=== PATIENT | female | born 1995 | race Caucasian/White ===

== ENCOUNTER 2022-04-12 21:34 | Emergency (ER) | payer OTHER ==
[~2022-04-12] VITALS: Ht 4206 cm
[~2022-04-12 21:34] MED LIST: DEPO PROVER150 MG/M1 IM
[2022-04-12 22:08] LABS: BASO # 0.1 10*3/uL (0.0-0.1); BASO % 0.4 % (0.0-1.0); EOS % 0.1 % (1.0-4.0); HEMATOCRIT 42.9 % (37.0-47.0); LYMPH # 1.2 10*3/uL (1.3-4.4); LYMPH % 7.2 % (27.0-41.0); MEAN CELL VOLUME 92.7 fl (81.0-99.0); MEAN CORPUSCULAR HGB 30.2 pg (27.0-31.0); MEAN CORPUSCULAR HGB CONC 32.6 g/dl (33.0-37.0); MEAN PLATELET VOLUME 9.9 fl (9.6-12.3); MONO # 1.4 10*3/uL (0.1-1.0); MONO % 8.2 % (3.0-9.0); NEUT # 14.1 10*3/uL (2.3-7.9); NEUT % 83.7 % (47.0-73.0); PLATELET COUNT AUTOMATED 358 10*3/uL (130-400); RED BLOOD COUNT 4.63 10*6/uL (4.10-5.10); RED CELL DISTRI WIDTH 13.1 % (0-14.5); WHITE BLOOD COUNT 16.8 10*3/uL (4.8-10.8)
[2022-04-12 22:22] LABS: ALKALINE PHOSPHATASE 86 U/L (46-116); BUN 9 mg/dl (9-23); CHLORIDE 105 mmol/L (98-107); TOTAL PROTEIN 7.2 gm/dL (6.0-8.0)
[2022-04-12] MEDS ORDERED: HYDROCODONE-AC1 EACH PO (22:24)
[2022-04-12 22:29] LABS: SGPT/ALT < 7 U/L (10-49)
== END 2022-04-12 22:52 | disposition home or self-care (01) ==
LOC: ED 21:34
PROVIDERS: Nurse Practitioner Family
DX: K08.89 Other specified disorders of teeth and supporting structures (principal)

== ENCOUNTER 2022-04-30 13:00 | Emergency (ER) | payer OTHER ==
[~2022-04-30] VITALS: Ht 162.5 cm; Wt 66.2 kg
[~2022-04-30 13:00] MED LIST changes: +HYDROCODONE-AC1 EACH PO
== END 2022-04-30 17:52 | disposition left against medical advice (07) ==
LOC: ED 13:00
DX: R10.2 Pelvic and perineal pain (principal)

== ENCOUNTER 2022-04-30 20:15 | Emergency (ER) | payer OTHER ==
[~2022-04-30] VITALS: Ht 162.5 cm; Wt 66.2 kg
== END 2022-04-30 20:38 | disposition left against medical advice (07) ==
LOC: ED 20:15
DX: N90.7 Vulvar cyst (principal)

== ENCOUNTER 2022-06-05 19:34 | Inpatient (IN) | payer OTHER ==
[~2022-06-05] VITALS: Ht 162.6 cm; Wt 66.4 kg
[2022-06-05 19:58] VITALS: BP 103/64
[2022-06-05 20:16] LABS: BASO % 0.2 % (0.0-1.0); EOS % 0.3 % (1.0-4.0); HEMATOCRIT 44.5 % (37.0-47.0); LYMPH # 0.6 10*3/uL (1.3-4.4); LYMPH % 4.3 % (27.0-41.0); MEAN CELL VOLUME 89.5 fl (81.0-99.0); MEAN CORPUSCULAR HGB 30.8 pg (27.0-31.0); MEAN CORPUSCULAR HGB CONC 34.4 g/dl (33.0-37.0); MEAN PLATELET VOLUME 9.7 fl (9.6-12.3); MONO % 7.5 % (3.0-9.0); NEUT # 11.3 10*3/uL (2.3-7.9); NEUT % 87.4 % (47.0-73.0); PLATELET COUNT AUTOMATED 352 10*3/uL (130-400); RED BLOOD COUNT 4.97 10*6/uL (4.10-5.10); RED CELL DISTRI WIDTH 12.6 % (0-14.5); WHITE BLOOD COUNT 12.9 10*3/uL (4.8-10.8)
[2022-06-05 20:26] LABS: BILIRUBIN Negative (Negative); BLOOD Negative (Negative); CLARITY Clear (Clear); COLOR Yellow (Yellow); GLUCOSE Negative (Negative); KETONE 3+ (Negative); LEUKO ESTERASE 1+ (Negative); NITRITE Negative (Negative); SPECIFIC GRAVITY 1.025 (1.001-1.030)
[2022-06-05 20:32] LABS: ALKALINE PHOSPHATASE 80 U/L (46-116); B-hCG (QUALITATIVE) NEGATIVE (NEGATIVE); BUN 12 mg/dl (9-23); CHLORIDE 105 mmol/L (98-107); LIPASE 33 U/L (12-53); POTASSIUM 3.5 mmol/L (3.4-5.1); SGPT/ALT 8 U/L (10-49); TOTAL PROTEIN 7.4 gm/dL (6.0-8.0)
[2022-06-05 20:37] LABS: BACTERIA 1+; MUCOUS 1+; RBC 0-2 rbc/hpf (0-2)
[2022-06-05] MEDS ORDERED: Ondansetron4 MG PO ×2 (22:10)
[2022-06-05] MEDS ORDERED: CEFDINIR300 MG PO ×2 (22:10)
[2022-06-06 00:35] VITALS: BP 111/68
[2022-06-06 06:50] VITALS: BP 93/56
[2022-06-06 08:11] LABS: INTERNATIONAL NORM RATIO 1.1 (2.0-3.5)
[2022-06-06 08:54] LABS: ALKALINE PHOSPHATASE 62 U/L (46-116); BUN 12 mg/dl (9-23); CHLORIDE 109 mmol/L (98-107); CHOLESTEROL 110 mg/dL (<200); LDL CHOLESTEROL 36 mg/dL (9-159); POTASSIUM 3.2 mmol/L (3.4-5.1); SGPT/ALT 7 U/L (10-49); THYROID STIM HORMONE (HS) 0.456 uIU/ml (0.550-4.780); TOTAL PROTEIN 5.8 gm/dL (6.0-8.0); TRIGLYCERIDES 70 mg/dl (<150)
[2022-06-06 09:16] LABS: BASO % 0.5 % (0.0-1.0); MEAN CORPUSCULAR HGB 30.4 pg (27.0-31.0); MONO # 0.5 10*3/uL (0.1-1.0)
[2022-06-06 09:26] LABS: VITAMIN D, 25-HYDROXY 23.9 ng/mL (30-100)
[2022-06-06 09:29] LABS: EOS % 0.5 % (1.0-4.0); HEMATOCRIT 36.5 % (37.0-47.0); LYMPH % 17.3 % (27.0-41.0); MEAN CELL VOLUME 92.4 fl (81.0-99.0); MEAN CORPUSCULAR HGB CONC 32.9 g/dl (33.0-37.0); MEAN PLATELET VOLUME 10.1 fl (9.6-12.3); MONO % 8.7 % (3.0-9.0); NEUT % 72.8 % (47.0-73.0); RED BLOOD COUNT 3.95 10*6/uL (4.10-5.10); RED CELL DISTRI WIDTH 12.7 % (0-14.5); WHITE BLOOD COUNT 5.5 10*3/uL (4.8-10.8)
[2022-06-06 09:42] LABS: PLATELET COUNT AUTOMATED 233 10*3/uL (130-400)
[2022-06-06 09:54] VITALS: BP 102/58
[2022-06-06 16:00] VITALS: BP 113/57
[2022-06-06] MEDS ORDERED: HYDROXYZINE PAM25 M1 PO (16:28)
[2022-06-06 20:00] VITALS: BP 100/59
[2022-06-07] VITALS: BP 102/64
[2022-06-07 06:12] LABS: BASO % 0.5 % (0.0-1.0); EOS # 0.2 10*3/uL (0.0-0.4); EOS % 5.2 % (1.0-4.0); HEMATOCRIT 36.7 % (37.0-47.0); LYMPH # 1.5 10*3/uL (1.3-4.4); LYMPH % 36.6 % (27.0-41.0); MEAN CELL VOLUME 92.9 fl (81.0-99.0); MEAN CORPUSCULAR HGB 30.1 pg (27.0-31.0); MEAN CORPUSCULAR HGB CONC 32.4 g/dl (33.0-37.0); MEAN PLATELET VOLUME 10.5 fl (9.6-12.3); MONO # 0.7 10*3/uL (0.1-1.0); MONO % 15.7 % (3.0-9.0); NEUT # 1.8 10*3/uL (2.3-7.9); NEUT % 41.8 % (47.0-73.0); PLATELET COUNT AUTOMATED 272 10*3/uL (130-400); RED BLOOD COUNT 3.95 10*6/uL (4.10-5.10); RED CELL DISTRI WIDTH 12.5 % (0-14.5); WHITE BLOOD COUNT 4.2 10*3/uL (4.8-10.8)
[2022-06-07 06:36] LABS: ALKALINE PHOSPHATASE 59 U/L (46-116); BUN 11 mg/dl (9-23); CHLORIDE 109 mmol/L (98-107); POTASSIUM 4.1 mmol/L (3.4-5.1); SGPT/ALT < 7 U/L (10-49); TOTAL PROTEIN 5.7 gm/dL (6.0-8.0)
[2022-06-07 08:00] VITALS: BP 88/50
[2022-06-07 12:00] VITALS: BP 96/65
[2022-06-07 16:00] VITALS: BP 96/54
[2022-06-07] MEDS ORDERED: ONDANSETRON HYDR4 M1 PO (18:13)
== END 2022-06-07 19:00 | disposition home or self-care (01) | DRG 720 ==
LOC: ED 19:34 → EDHOLD 22:23 → 4E 06-06 14:44
PROVIDERS: Emergency Medicine; Internal Medicine; Student in an Organized Health Care Education/Training Program; ADMIT Internal Medicine; ATTEND Internal Medicine
DX: A41.9 Sepsis, unspecified organism (principal); N39.0 Urinary tract infection, site not specified; K52.9 Noninfective gastroenteritis and colitis, unspecified; R73.9 Hyperglycemia, unspecified; E80.6 Other disorders of bilirubin metabolism; F41.9 Anxiety disorder, unspecified; I95.9 Hypotension, unspecified; F17.210 Nicotine dependence, cigarettes, uncomplicated; Z90.49 Acquired absence of other specified parts of digestive tract; Z83.3 Family history of diabetes mellitus; Z81.8 Family history of other mental and behavioral disorders

== ENCOUNTER 2022-07-30 20:30 | Emergency (ER) | payer OTHER ==
[~2022-07-30] VITALS: Ht 162.5 cm; Wt 66.2 kg
[~2022-07-30 20:30] MED LIST changes: +CEFDINIR300 MG PO; +HYDROXYZINE PAM25 M1 PO; +ONDANSETRON HYDR4 M1 PO; +Ondansetron4 MG PO
== END 2022-07-30 21:35 | disposition home or self-care (01) ==
LOC: ED 20:30
DX: S61.203A Unspecified open wound of left middle finger without damage to nail, initial encounter (principal); Z98.890 Other specified postprocedural states; W26.0XXA Contact with knife, initial encounter; Y93.G3 Activity, cooking and baking; Y92.89 Other specified places as the place of occurrence of the external cause; Y99.8 Other external cause status; Z90.49 Acquired absence of other specified parts of digestive tract

== ENCOUNTER 2022-09-27 14:44 | Emergency (ER) | payer OTHER ==
[~2022-09-27] VITALS: Ht 162.5 cm; Wt 66.2 kg
[2022-09-27 15:07] LABS: BILIRUBIN Negative (Negative); BLOOD 2+ (Negative); CLARITY Cloudy (Clear); COLOR Yellow (Yellow); GLUCOSE Negative (Negative); KETONE Negative (Negative); LEUKO ESTERASE 2+ (Negative); NITRITE Negative (Negative); PH 6.5 (4.5-8.0); SPECIFIC GRAVITY >= 1.030 (1.001-1.030)
[2022-09-27 15:20] LABS: BACTERIA 2+; RBC TNTC rbc/hpf (0-2); WBC TNTC wbc/hpf (0-5)
[2022-09-27 15:21] LABS: BASO # 0.1 10*3/uL (0.0-0.1); BASO % 0.7 % (0.0-1.0); EOS # 0.1 10*3/uL (0.0-0.4); EOS % 1.3 % (1.0-4.0); HEMATOCRIT 41.4 % (37.0-47.0); LYMPH # 1.6 10*3/uL (1.3-4.4); LYMPH % 18.9 % (27.0-41.0); MEAN CELL VOLUME 88.1 fl (81.0-99.0); MEAN CORPUSCULAR HGB 29.8 pg (27.0-31.0); MEAN CORPUSCULAR HGB CONC 33.8 g/dl (33.0-37.0); MEAN PLATELET VOLUME 10.3 fl (9.6-12.3); MONO # 0.6 10*3/uL (0.1-1.0); MONO % 7.1 % (3.0-9.0); NEUT # 6.1 10*3/uL (2.3-7.9); NEUT % 71.8 % (47.0-73.0); PLATELET COUNT AUTOMATED 274 10*3/uL (130-400); RED CELL DISTRI WIDTH 12.9 % (0-14.5); WHITE BLOOD COUNT 8.5 10*3/uL (4.8-10.8)
[2022-09-27 15:41] LABS: ALKALINE PHOSPHATASE 75 U/L (46-116); BUN 14 mg/dl (9-23); CHLORIDE 106 mmol/L (98-107); POTASSIUM 3.8 mmol/L (3.4-5.1); SGPT/ALT 7 U/L (10-49); TOTAL PROTEIN 7.1 gm/dL (6.0-8.0)
[2022-09-27] MEDS ORDERED: OXYBUTYNIN5 MG PO (17:14)
[2022-09-27] MEDS ORDERED: CIPRO500 MG PO (17:14)
== END 2022-09-27 16:21 | disposition home or self-care (01) ==
LOC: ED 14:44
PROVIDERS: Emergency Medicine
DX: N39.0 Urinary tract infection, site not specified (principal); Z90.49 Acquired absence of other specified parts of digestive tract

== ENCOUNTER 2022-10-01 12:09 | Emergency (ER) | payer OTHER ==
[~2022-10-01] VITALS: Ht 162.5 cm; Wt 66.2 kg
[~2022-10-01 12:09] MED LIST changes: +CIPRO500 MG PO; +OXYBUTYNIN5 MG PO
[2022-10-01] MEDS ORDERED: Bactroban Oint22 GM T (13:37)
== END 2022-10-01 14:18 | disposition home or self-care (01) ==
LOC: ED 12:09
DX: S83.91XA Sprain of unspecified site of right knee, initial encounter (principal); S93.402A Sprain of unspecified ligament of left ankle, initial encounter; Z90.49 Acquired absence of other specified parts of digestive tract; W10.9XXA Fall (on) (from) unspecified stairs and steps, initial encounter; Y93.89 Activity, other specified; Y92.89 Other specified places as the place of occurrence of the external cause; Y99.8 Other external cause status

== ENCOUNTER 2023-02-04 14:06 | Emergency (ER) | payer SELFPAY ==
[~2023-02-04] VITALS: Ht 162.5 cm; Wt 67.1 kg
[~2023-02-04 14:06] MED LIST changes: +Bactroban Oint22 GM T
[2023-02-04 15:45] LABS: BILIRUBIN Negative (Negative); BLOOD Negative (Negative); CLARITY Cloudy (Clear); COLOR Yellow (Yellow); GLUCOSE Negative (Negative); KETONE Trace (Negative); LEUKO ESTERASE 1+ (Negative); NITRITE Negative (Negative); PH 7.5 (4.5-8.0); SPECIFIC GRAVITY >= 1.030 (1.001-1.030)
[2023-02-04 15:56] LABS: BACTERIA 1+; EPITHELIAL CELLS 16-20
[2023-02-04 15:57] LABS: BASO % 0.7 % (0.0-1.0); EOS # 0.1 10*3/uL (0.0-0.4); EOS % 2.4 % (1.0-4.0); HEMATOCRIT 44.5 % (37.0-47.0); LYMPH % 22.9 % (27.0-41.0); MEAN CELL VOLUME 92.9 fl (81.0-99.0); MEAN CORPUSCULAR HGB 30.1 pg (27.0-31.0); MEAN CORPUSCULAR HGB CONC 32.4 g/dl (33.0-37.0); MEAN PLATELET VOLUME 10.5 fl (9.6-12.3); MONO # 0.6 10*3/uL (0.1-1.0); MONO % 14.7 % (3.0-9.0); NEUT # 2.5 10*3/uL (2.3-7.9); NEUT % 59.1 % (47.0-73.0); PLATELET COUNT AUTOMATED 272 10*3/uL (130-400); RED BLOOD COUNT 4.79 10*6/uL (4.10-5.10); RED CELL DISTRI WIDTH 12.9 % (0-14.5); WHITE BLOOD COUNT 4.2 10*3/uL (4.8-10.8)
[2023-02-04 16:18] LABS: ALKALINE PHOSPHATASE 85 U/L (46-116); BUN 11 mg/dl (9-23); CHLORIDE 104 mmol/L (98-107); LIPASE 32 U/L (12-53); POTASSIUM 3.8 mmol/L (3.4-5.1); SGPT/ALT 10 U/L (5-49); TOTAL PROTEIN 6.6 gm/dL (6.0-8.0)
[2023-02-04] MEDS ORDERED: MACROBID100 M1 PO (18:44)
== END 2023-02-04 18:53 | disposition home or self-care (01) ==
LOC: ED 14:06
PROVIDERS: Nurse Practitioner Family
DX: A08.4 Viral intestinal infection, unspecified (principal); N39.0 Urinary tract infection, site not specified; R11.2 Nausea with vomiting, unspecified; R10.31 Right lower quadrant pain; Z90.49 Acquired absence of other specified parts of digestive tract

== ENCOUNTER 2023-05-27 21:37 | Emergency (ER) | payer MEDICAID ==
[~2023-05-27] VITALS: Ht 167.6 cm; Wt 64.4 kg
[~2023-05-27 21:37] MED LIST changes: +MACROBID100 M1 PO
[2023-05-27] MEDS ORDERED: PRAZIQUANTEL600 MG PO (22:01)
== END 2023-05-27 22:15 | disposition home or self-care (01) ==
LOC: ED 21:37
DX: R19.5 Other fecal abnormalities (principal); Z90.49 Acquired absence of other specified parts of digestive tract